=== PATIENT | male | born 1980 | race Caucasian/White ===

== ENCOUNTER 2020-03-30 17:30 | Outpatient (CLI) | payer OTHER | END 2020-03-30 17:31 | disposition home or self-care (01) | LOC: SLEEPLAB 17:30 | PROVIDERS: ATTEND Otolaryngology Plastic Surgery within the Head & Neck | DX: G47.33 Obstructive sleep apnea (adult) (pediatric) (principal); R53.83 Other fatigue; G47.00 Insomnia, unspecified; G47.10 Hypersomnia, unspecified | CPT/HCPCS: 95806 ==